=== PATIENT | male | born 1970 | race Caucasian/White ===

== ENCOUNTER 2019-07-20 12:12 | Emergency (ER) | payer OTHER ==
[~2019-07-20] VITALS: Ht 180.3 cm; Wt 157.0 kg
[2019-07-20 12:51] LABS: BASO # 0.1 10^3/uL (0.0-0.2); BASO % 0.8 % (0.0-1.0); EOS # 0.3 10^3/uL (0.0-0.5); HEMATOCRIT 54.9 % (42.0-52.0); HEMOGLOBIN 17.6 g/dl (13.5-17.5); LYMPH # 2.2 10^3/uL (1.5-5.0); LYMPH % 25.8 % (24.0-44.0); MEAN CORPUSCULAR HEMOGLOBIN 28.8 pg (27.0-33.0); MEAN CORPUSCULAR HGB CONC 32.1 g/dl (32.0-36.5); MEAN CORPUSCULAR VOLUME 89.7 fl (80.0-96.0); MONO # 0.6 10^3/uL (0.0-0.8); MONO % 6.7 % (0.0-5.0); NEUTROPHILS # 5.5 10^3/uL (1.5-8.5); NEUTROPHILS % 63.4 % (36.0-66.0); PLATELET COUNT, AUTOMATED 228 10^3/uL (150-450); RED BLOOD COUNT 6.12 10^6/uL (4.30-6.10); WHITE BLOOD COUNT 8.7 10^3/uL (4.0-10.0)
[2019-07-20 13:22] LABS: ALBUMIN 3.5 GM/DL (3.2-5.2); ALT/SGPT 32 U/L (12-78); BILIRUBIN,DIRECT 0.1 MG/DL (0.0-0.2); BILIRUBIN,TOTAL 0.6 MG/DL (0.2-1.0); BLOOD UREA NITROGEN 10 MG/DL (7-18); CALCIUM LEVEL 8.9 MG/DL (8.5-10.1); CARBON DIOXIDE LEVEL 31 MEQ/L (21-32); CHLORIDE LEVEL 107 MEQ/L (98-107); CREATININE FOR GFR 0.89 MG/DL (0.70-1.30); GLOMERULAR FILTRATION RATE > 60.0 (>60); GLUCOSE, FASTING 99 MG/DL (70-100); LIPASE 70 U/L (73-393); POTASSIUM SERUM 4.4 MEQ/L (3.5-5.1); SODIUM LEVEL 140 MEQ/L (136-145); TOTAL PROTEIN 7.3 GM/DL (6.4-8.2)
[2019-07-20] MEDS ORDERED: ISOVUE-370 76% 100ML VIAL (Q9967) As Ordered ONE (14:00)
--- NOTE | 2019-07-20 14:43 | REP ---
CT ABDOMEN AND PELVIS WITH IV BUT WITHOUT ORAL CONTRAST: HISTORY: Bilateral lower quadrant abdomen pain. Nausea. CT CONTRAST DOSE: 100 mL of intravenous [id number] FINDINGS: Preliminary insights strategist radiograph is unremarkable. There is minimal linear plate-like atelectasis in the left lung base. Lung bases are otherwise clear. There is mild to moderate fatty infiltration of the liver. No focal liver lesion is seen. The spleen is homogeneous in texture normal in size. No adrenal lesion is observed. Kidneys enhance symmetrically and are morphologically intact. No abnormalities noted in the pancreas or gallbladder. No retroperitoneal mass or adenopathy is observed. Small and large intestinal bowel loops are normal in the abdomen and pelvis. Normal appendix is seen. There is an umbilical hernia transmitting some edematous and inflamed-appearing fat through an abdominal wall defect, which measures 19 mm in craniocaudal span by 20 mm medial to lateral. No other abdominal wall defect is seen. Prostate, seminal vesicles, and urinary bladder are unremarkable. No bony destructive lesion is seen. IMPRESSION: Fatty infiltration of the liver. Umbilical hernia transmitting inflamed omental fat. Normal appendix. Otherwise unremarkable CT study abdomen and pelvis. Electronically Signed by Dakota Tan MD 07/20/2019 05:04 P
[2019-07-20] MEDS ORDERED: KETOROLAC 30 MG/ML VIAL (J1885) IV ONE (15:15)
[2019-07-20 16:14] VITALS: BP 111/64
== END 2019-07-20 16:25 | disposition home or self-care (01) ==
LOC: M ED 12:12
DX: K42.9 Umbilical hernia without obstruction or gangrene (principal); Z88.5 Allergy status to narcotic agent; F17.210 Nicotine dependence, cigarettes, uncomplicated
CPT/HCPCS: 74177; 80048; 80076; 81001; 83690; 85025; 96374; 99284; J1885; Q9967